=== PATIENT | female | born 1960 | race Caucasian/White ===

== ENCOUNTER → 2016-10-07 | Outpatient (CLI) | payer BC, OTHER ==
--- NOTE | 2016-10-07 09:33 | DIAGNOSTIC IMAGING REPORT ---
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 COMPARISON STUDY: None. FINDINGS: Visualized intracranial internal carotid arteries, distal vertebral arteries, and basilar artery are widely patent. There is no significant stenosis, occlusion, or aneurysm seen within the bilateral ACAs, MCAs, or registered pharmacy technician. IMPRESSION: No significant stenosis, occlusion, or aneurysm within the [place]. Comparison to the previous study is recommended to better evaluate for an aneurysm which is not clearly identified on this study. Electronically signed by: Jovanny Gibbs M.D. 10/07/2016 9:31 AM Dictated Date/Time: 10/07/2016 9:25 AM
== END | disposition home or self-care (01) ==
LOC: C.MRI 08:56
PROVIDERS: ATTEND Family Medicine
DX: I72.8 Aneurysm of other specified arteries (principal)